=== PATIENT | female | born 1965 | race Caucasian/White ===

== ENCOUNTER → 2018-02-12 | Outpatient (CLI) | payer OTHER ==
[2018-02-12 17:47] LABS: Thyroid Peroxidase Antibodies 200.1 U/mL (0.0-60.0)
[2018-02-12 18:00] LABS: ACTH 11.6 pg/mL (0.00-45.99)
== END | disposition home or self-care (01) ==
LOC: LABWHC1 10:41
PROVIDERS: ATTEND Internal Medicine Endocrinology, Diabetes & Metabolism
DX: E03.8 Other specified hypothyroidism (principal); R53.83 Other fatigue
CPT/HCPCS: 36415; 82024; 82533; 84146; 84443; 86376